=== PATIENT | male | born 1980 | race Caucasian/White ===

== ENCOUNTER 2016-09-02 11:29 | Emergency (ER) | payer OTHER ==
--- NOTE | 2016-09-21 15:27 | ER ---
ADMIT: 09/02/2016 RM/LOC: ER [facility] MR#: [id number] [facility] [id number] JACK ECHOLS [address] [address] Emergency Room Report SEX: M AGE: 36 : 1980 DATE: 09/02/2016 ADDENDUM: A 36-year-old white male coming in with abdominal pain, he has small bowel obstruction. 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 CONDITION ON DISCHARGE: Fair. Jameel Neves MD/ federico JOB #: [id number] CC: Jameel Neves MD, Attending Physician [facility]-[place] Physician, Family Physician
== END 2016-09-02 16:25 ==
LOC: ER 11:29
DX: K56.60 Unspecified intestinal obstruction (principal); B20 Human immunodeficiency virus [HIV] disease; R10.84 Generalized abdominal pain; F17.210 Nicotine dependence, cigarettes, uncomplicated; Z88.8 Allergy status to other drugs, medicaments and biological substances